=== PATIENT | female | born 1960 | race Caucasian/White ===

== ENCOUNTER → 2018-09-22 | Outpatient (CLI) | payer BC, OTHER ==
[~2018-09-22] VITALS: Ht 167.6 cm; Wt 86.2 kg
[~2018-09-22] MED LIST: ALEVE220 MG PO; BUPROPION XL450 MG PO; BUSPIRONE HCL10 MG PO; DESYREL300 MG PO; EFFEXOR XR75 MG PO; JARDIANCE25 MG PO; LAMICTAL100 MG PO; LIPITOR 20 MG T20 M1 PO; MINIPRESS2 MG PO; NEURONTIN600 MG PO; NORCO 5-325 TA1 EAC1 PO; NUVIGIL150 MG PO; PERPHENAZINE 2 M2 MG PO; PIOGLITAZONE15 MG; RITALIN20 MG PO; SYNTHROID75 MCG PO; XANAX 0.5 MG0.5 MG PO; ZESTORETIC 20-1 EAC2 PO; ZETIA10 MG PO
--- NOTE | ~2018-09-22 | HPC ---
[facility] [place] [address] PAIN MANAGEMENT CONSULTATION Name: NIGEL RODRIGUEZ Room #: REG [facility].#: [id number] Admission: 09/22/18 ������������������ Attend Phys: Anmol Heller MD Discharge: ������������������ Date of : 62 Report #: [id number] THIS REPORT FOR: //name// CC: Servando ROQUE DO Anmol ORTIZ DATE OF SERVICE: 09/22/2018 CHIEF COMPLAINT: Right mandibular pain. I am seeing the patient again at the request of Dr. Orr. He has asked me to discuss with her mandibular nerve block. She has atypical facial pain/trigeminal neuralgia. This dates back to 1989! She apparently had a rough tooth extraction and has complained of pain in her right mandible since. The pain is severe. She carries with her pictures of the teeth extraction to share with me today. She sees Dr. Matty Roque who gives her epidural injections, but does not want to inject the mandibular nerve. Dr. Orr sent her to me to discuss that injection. She is on substantial central acting polypharmacy provided for her by multiple physicians. I will not prescribe medications. MEDICATIONS: BuSpar 60 mg daily, gabapentin 3200 mg daily, Lamictal 400 mg daily, levothyroxine, lisinopril, venlafaxine 225 mg daily, Zetia, Lipitor, trazodone 300 mg daily, Nuvigil 300 mg daily, Ritalin 40 mg daily, bupropion 450 mg daily, perphenazine 4 mg daily, prazosin, pioglitazone and ____, Ozempic, Xanax 0.5 mg p.r.n. 10-20 times per month, hydrocodone 5/325 also p.r.n. up to 5-20 times per month, and naproxen sodium 4-5 per day. ALLERGIES: ____ and LYRICA. PAST MEDICAL HISTORY: Significant for hypertension, diabetes, kidney stones, hypothyroidism. Emotional problems described as depression and anxiety. PAST SURGICAL HISTORY: Includes the wisdom tooth removal in 1989 resulting in the mandibular pain on the right, nerve decompression 1992, lithotripsy 1999, cervical spinal laminoplasty 2017, lumbar surgery 2017, and decompressive laminectomy 2017. 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 She continues [facility] [place] [address] PAIN MANAGEMENT CONSULTATION Name: NIGEL RODRIGUEZ Room #: REG CL MYosvany.#: [id number] Admission: 09/22/18 ������������������ Attend Phys: Anmol Heller MD Discharge: ������������������ Date of : 62 Report #: [id number] to work, but says she has a very hard time, both for pain and because she is having trouble with her memory! I pointed out that she is on 11 drugs that work on her brain. REVIEW OF SYSTEMS: Positive for fatigue, weakness and headaches, blurred vision. She has had shortness of breath, dyspnea on exertion, nocturia, kidney stones. She complains of a rash, chronic breast pain, lightheadedness, dizziness, numbness and tingling, memory loss, confusion, nervousness, depression and insomnia. PHYSICAL EXAMINATION: GENERAL: Anxious female, on the verge of tears. VITAL SIGNS: Her blood pressure is 132/76, heart rate 112, respirations 14. She is 5 feet 6 inches, 190 pounds, BMI of 30.7. HEENT: Reveals pupils to be equal, round, reactive to light. EOMs are intact. Mucous membranes are moist. She has tenderness overlying the mandible. She is tender behind the third molar on the right. She has no evidence of bruxism. Tenderness along the mandible on the right. No swelling noted. No palpable masses. NECK: Supple. CHEST: Clear to auscultation. CARDIAC: Rhythm is regular, without murmur. IMPRESSION: 1. Trigeminal neuralgia third branch involving the right V3 distribution. 2. History of severe depression and anxiety. 3. Marked polypharmacy. 4. Posttraumatic stress disorder. 5. Hypertension. 6. Diabetes. 7. History of kidney stones. RECOMMENDATIONS: I have talked about an injection of the mandibular nerve, which can be performed under fluoroscopic guidance. It may not provide lasting relief, but can be performed to see if we can block the pain. There may be some benefit in blocking the pain and I would use Decadron for the injection. Blocking of the pain cycle might help her. I previously followed Dr. Orr's request to refer her on for ketamine infusion. Please see the notes from Lanny. She did not follow up on that recommendation. I would argue against any sort of neuro-ablative peripheral procedure of the trigeminal nerve, which often times can result in anesthesia dolorosa. Potential risks of the procedure were discussed with the patient. She has appeared anxious to proceed. Followup visit is scheduled once we have received authorization to go forward. [facility] [address] [place] [address] PAIN MANAGEMENT CONSULTATION Name: NIGEL RODRIGUEZ Room #: REG CLMaribel Aguayo.#: [id number] Admission: 09/22/18 ������������������ Attend Phys: Anmol Heller MD Discharge: ������������������ Date of : 62 Report #: [id number] At the end of her consultation, she informed me that she was undergoing additional surgery with Dr. Orr next week? I am not certain of that surgery since I do not have full records from Dr. Orr's office. We will follow up after surgery. ��������������������������������������������� ���������������������������������������� By: ��������������������������������������������� [id number] Anmol Heller MD /nt
[2018-09-22 13:36] VITALS: BP 132/76
--- NOTE | 2018-09-22 15:16 | NUR ---
Pain Clinic Assessment: 1. History of Osteoarthritis: SPINE History of Rheumatoid Arthritis: NO 2. Height: 5 ft. 6 in. 167.6 cm. Weight: 190.0 lb. oz. 86.184 kg. Patient's BMI: 30.7 3. Vital Signs: BP: 132/76 Pulse: 112 Resp: 14 Temp: 02 Sat: 95 ECG Mon: 4. Pain Intensity: 5 5. Fall Risk: Dizziness: N Needs help standing or walking: N Fallen in the last 3 months: N Fall risk comments: 6. Patient on Blood Thinner: None 7. History of Hypertension: Y 8. Opioid Therapy greater than 6 weeks: Y Opiate Contract Signed: 9. Risk Assessment Tool Provided: 2-LOW RISK 10. Functional Assessment Tool: 50/70 11. Recreational Drug Use: Never Drug Type: Tobacco Use: Never Smoker Tobacco Type: Amount or Packs/day: How Many Years: Alcohol Use: Yes Frequency: Weekly Quant: 1 WEEK
== END ==
LOC: PAIN 06:57
DX: G50.0 Trigeminal neuralgia (principal); F43.10 Post-traumatic stress disorder, unspecified; I10 Essential (primary) hypertension; E11.9 Type 2 diabetes mellitus without complications; F32.9 Major depressive disorder, single episode, unspecified; F41.9 Anxiety disorder, unspecified; Z88.8 Allergy status to other drugs, medicaments and biological substances; Z79.899 Other long term (current) drug therapy; X58.XXXA Exposure to other specified factors, initial encounter; Y93.89 Activity, other specified; Y92.89 Other specified places as the place of occurrence of the external cause; Y99.8 Other external cause status

== ENCOUNTER → 2019-01-26 | Outpatient (CLI) | payer BC, OTHER ==
[~2019-01-26] VITALS: Ht 165.1 cm; Wt 85.7 kg
[~2019-01-26] MED LIST changes: +OZEMPIC1 MG/0.75 SUBQ; +VRAYLAR1.5 MG PO
--- NOTE | ~2019-01-26 | HPC ---
[facility] [address] [place] [address] PAIN MANAGEMENT CONSULTATION Name: NIGEL RODRIGUEZ Room #: REG [facility] MFrancisco.#: [id number] Admission: 01/26/19 Attend Phys: Anmol Heller MD Discharge: Date of : 62 Report #: [id number] THIS REPORT FOR: //name// CC: Servando Tamez DATE OF SERVICE: 01/26/2019 Followup visit for trigeminal neuralgia, mandibular branch. The patient is here today for the mandibular branch nerve block that we discussed on 09/22/2018. She has had a fairly significant amount of spinal care since she was last here. On 10/01/2018, Dr. Orr performed a thoracic laminectomy as she describes that he cleared out a space for her spinal cord stimulator lead. A few days later, he apparently then re-operated placing her spinal cord stimulator for low back pain with sciatica. She has a [employer] device and feels it is providing some relief. She describes her back pain and leg pain as "some better". She continues to complain of daily and nocturnal pain of the trigeminal mandibular branch. When the pain is severe, it is typical of neuropathic pain with burning, aching and throbbing sensations. Her average daily pain is a 5 Today, is not so bad, she scores it as a 3. It is exacerbated by stress. She uses gabapentin, Lamictal, Aleve and hydrocodone to help control her pain. Her last hydrocodone was provided to her by Dr. Laureano Del Cid 30 tablets and she takes gabapentin 800 mg 3 times daily for a total of 2700. Because of the sedating effects, she is also on methylphenidate and armodafinil. PQRS REVIEW: 1. History of spinal issues with spondylosis, but denies other arthritis. 2. BMI 31.5. 3. Vital signs: Blood pressure 124/69, heart rate 104, respirations 20, O2 sat 95. 4. Pain intensity 5 on an average, a 3/10 today. 5. She is not a fall risk and has not fallen in 3 months. 6. She denies use of blood thinner and is under treatment for hypertension. 7. She has an opioid agreement signed outside of our clinic. 8. She has signed an opioid risk tool and completed in our clinic, although we do not provide medication for her. Her score is 2, which is considered low risk for addiction. 9. Functional assessment score is 50 for a variety of reasons. 10. She denies recreational drug use, marijuana. Denies any use of tobacco in her lifetime, but does occasionally drink alcohol in a social setting. [address] [address] PAIN MANAGEMENT CONSULTATION Name: MICHAELNIGEL Room #: REG CLMaribel Aguayo.#: [id number] Admission: 01/26/19 Attend Phys: Anmol Heller MD Discharge: Date of : 62 Report #: [id number] PHYSICAL EXAMINATION: As findings above Cranial nerve exam reveals tenderness and some light touch allodynia in the distribution of the V3, third division of the trigeminal nerve. She has no trigger with jaw clenching. No hypersensitivity in the oral cavity. Neck range of motion is adequate. IMPRESSION: Trigeminal neuralgia, mandibular branch. We reviewed the mandibular block that we discussed so long ago. We discussed with Dr. Orr's assessment and request for a mandibular nerve block. I again argued against a neuroablative procedure. A small amount of Decadron and local anesthetic may provide some lasting relief. If it does so then we can use this block again. She may consider the use of CyberKnife if she continues to have symptoms. PROCEDURE: Mandibular nerve block under fluoroscopic guidance. Using the technique described in the textbook practical management of pain by Dr. Chirinos, she was taken to fluoroscopic suite. She was placed in the supine position. The skin was prepped with ChloraPrep on the right side of the face, anterior to the ear. The skin was anesthetized with 1% lidocaine. I then identified the zygomatic arch and the notch of the mandible. I asked her to slightly open her jaw to make room between the notch of the mandible and zygomatic arch. Skin was then anesthetized with 1% lidocaine using 3 mL to identify the pathway for the ensuing needle. There was no discomfort from the injection following that. A 2-inch 25-gauge needle was then used for the procedure. Using back and forth AP and lateral views, I advanced the needle through the opening between the zygomatic arch in the notch until contact was made with the lateral pterygoid plate. The needle was repositioned slightly posterior to place it in greater proximity to the mandibular nerve. There was no paresthesia identified, but on AP and lateral views are position looked ideal. I did not seek the paresthesia as this can often trigger some persistent pain. After negative aspiration, I injected 0.25 mL of Omnipaque, which demonstrated excellent spread lateral to the lateral pterygoid plate. I then followed with 3 mL of 0.5% bupivacaine mixed with 4 mg of dexamethasone. She tolerated the procedure well. At the discharge from recovery room, she reported numbness in the distribution of the mandibular nerve, but had difficulty assigning a pain score number. Followup visit is planned in February or March of 2019 to reassess for both pain relief and duration of response. By: [id number] Anmol Heller MD /shell
[2019-01-26 14:02] VITALS: BP 124/69
--- NOTE | 2019-01-26 14:10 | NUR ---
Pain Clinic Assessment: 1. History of Osteoarthritis: SPINE History of Rheumatoid Arthritis: NO 2. Height: 5 ft. 5 in. 165.1 cm. Weight: 189.0 lb. oz. 85.730 kg. Patient's BMI: 31.5 3. Vital Signs: BP: 124/69 Pulse: 104 Resp: 20 Temp: 02 Sat: 95 ECG Mon: 4. Pain Intensity: 3 TODAY, 5 AVG 5. Fall Risk: Dizziness: N Needs help standing or walking: N Fallen in the last 3 months: N Fall risk comments: 6. Patient on Blood Thinner: None 7. History of Hypertension: Y 8. Opioid Therapy greater than 6 weeks: Y Opiate Contract Signed: 9. Risk Assessment Tool Provided: 2-LOW RISK 10. Functional Assessment Tool: 50/70 11. Recreational Drug Use: Never Drug Type: Tobacco Use: Never Smoker Tobacco Type: Amount or Packs/day: How Many Years: Alcohol Use: Yes Frequency: Quant:
== END | disposition home or self-care (01) ==
LOC: PAIN 06:55
DX: G50.0 Trigeminal neuralgia (principal); I10 Essential (primary) hypertension; Z98.890 Other specified postprocedural states; Z79.899 Other long term (current) drug therapy; Z88.8 Allergy status to other drugs, medicaments and biological substances; Z79.891 Long term (current) use of opiate analgesic

== ENCOUNTER → 2019-02-23 | Outpatient (CLI) | payer BC, OTHER ==
[~2019-02-23] VITALS: Ht 165.1 cm; Wt 88.5 kg
--- NOTE | ~2019-02-23 | HPC ---
[facility] [address] [place] [address] PAIN MANAGEMENT CONSULTATION Name: NIGEL RODRIGUEZ Room #: REG [facility] Dede.#: [id number] Admission: 02/23/19 Attend Phys: Anmol Heller MD Discharge: Date of : 62 Report #: [id number] THIS REPORT FOR: //name// CC: Servando Heller DATE OF SERVICE: 02/23/2019 Followup visit for mandibular neuralgia. Trigeminal neuralgia, V3 branch. The patient returns to pain clinic today in followup. I performed her injection on 01/26/2019. She was discharged from recovery room with some improvement, but returns to pain clinic today saying that her pain relief was limited to just a couple of days and returned back to baseline. There was some diagnostic component. We were able to anesthetize the nerve branch and provide pain relief. We discussed Dr. Orr's assessment, request for mandibular nerve block. I reviewed once again against neuroablative procedures that I have at each visit. Anesthesia dolorosa is something that we have been treating in our pain clinic for patients who have had aggressive procedures performed. CyberKnife may be an option for her. She was given a referral to Dr. Servando Sepulveda at [facility]. She continues to receive her medications from Dr. Montero and has no desire to move away from his care. He provides her with Tylenol No. 3 on a periodic basis. Dr. Orr has also given her hydrocodone. I did review her prescription drug monitoring program information and there are no unexpected entries. She receives methylphenidate, alprazolam, armodafinil from Dr. Dickens, her psychiatrist. Her last prescription for any opioid medication was a prescription for hydrocodone 10/325, #[address] Carl [address] Dr. Montero has provided for her in the past, but not recently. PHYSICAL EXAMINATION: She is pleasant, alert and oriented. Blood pressure is 124/76, heart rate is 101, respirations 14, BMI is 32.4. She continues to experience some light touch allodynia in the distribution of V3, the third division of the trigeminal nerve. IMPRESSION: Trigeminal neuralgia, mandibular, V3 branch. [facility] [address] [place] [address] PAIN MANAGEMENT CONSULTATION Name: MICHAELNIGEL Room #: REG [facility] Dez#: [id number] Admission: 02/23/19 Attend Phys: Anmol Heller MD Discharge: Date of : 62 Report #: [id number] Follow up as needed. I did not make a return visit for her. By: [id number] Anmol Heller MD /nt
[2019-02-23 14:27] VITALS: BP 124/76
--- NOTE | 2019-02-23 14:34 | NUR ---
Pain Clinic Assessment: 1. History of Osteoarthritis: SPINE History of Rheumatoid Arthritis: NO 2. Height: 5 ft. 5 in. 165.1 cm. Weight: 195.0 lb. oz. 88.452 kg. Patient's BMI: 32.4 3. Vital Signs: BP: 124/76 Pulse: 101 Resp: 14 Temp: 02 Sat: 95 ECG Mon: 4. Pain Intensity: 6 5. Fall Risk: Dizziness: N Needs help standing or walking: N Fallen in the last 3 months: N Fall risk comments: 6. Patient on Blood Thinner: None 7. History of Hypertension: Y 8. Opioid Therapy greater than 6 weeks: Y Opiate Contract Signed: 9. Risk Assessment Tool Provided: 2-LOW RISK 10. Functional Assessment Tool: 50/70 11. Recreational Drug Use: Never Drug Type: Tobacco Use: Never Smoker Tobacco Type: Amount or Packs/day: How Many Years: Alcohol Use: Yes Frequency: Special Occasions Quant:
== END ==
LOC: PAIN 06:58
DX: G50.0 Trigeminal neuralgia (principal)